=== PATIENT | male | born 1950 | race Caucasian/White ===

== ENCOUNTER 2016-12-01 19:00 | Inpatient (IN) | payer MEDICARE, BC ==
[~2016-12-01] VITALS: Ht 177.8 cm; Wt 108.9 kg
[2016-12-01] MEDS ORDERED: SODIUM CHLORIDE 0.9% 1,000 ML IV ONE ×2 (19:29→20:22)
[2016-12-01 19:44] LABS: BASOPHILS % 0.4 % (0.0-2.0); EOSINOPHILS % 1.2 % (0.0-5.0); HEMATOCRIT. 39.1 % (42.0-52.0); LYMPHOCYTES % 12.6 % (20.0-50.0); MEAN CORPUSCULAR HEMOGLOBIN 29.2 pg (28.0-32.0); MEAN CORPUSCULAR VOLUME 87.3 fL (80.0-94.0); MEAN PLATELET VOLUME 8.3 fl (7.4-10.4); NEUTROPHILS % 75.8 % (40.0-76.0); PLATELET 221 x1000/uL (130-400); RED BLOOD CELL COUNT 4.47 mill/uL (4.7-6.1); RED CELL DISTRIBUTION WIDTH 14.3 % (11.6-14.6)
[2016-12-01 19:59] LABS: INR 1.1
[2016-12-01 20:03] LABS: CARBON DIOXIDE 20 mEq/L (21-32); CHLORIDE 99 mEq/L (98-107); CREATINE KINASE 350 IU/L (39-308); CREATINE KINASE MB FRACTION 12.3 ng/mL (0.5-3.6); TOTAL IRON BINDING CAPACITY 238 ug/dL (250-450); TROPONIN I < 0.02 ng/mL (0.00-0.04)
[2016-12-01 20:37] LABS: FOLIC ACID (FOLATE) SERUM 10.8 ng/mL (>5.38)
[2016-12-01 22:39] LABS: CLARITY URINE CLEAR (CLEAR); COLOR URINE YELLOW (YELLOW); KETONES URINE NEGATIVE (NEGATIVE); LEUKOCYTE ESTERASE URINE TRACE (NEGATIVE); NITRITE URINE NEGATIVE (NEGATIVE); OCCULT BLOOD URINE TRACE (NEGATIVE); PROTEIN URINE TRACE (NEGATIVE); SPECIFIC GRAVITY URINE 1.016 (1.005-1.030); UROBILINOGEN URINE 0.2 E.U./dL (0.2-1.0)
[2016-12-01] MEDS ORDERED: ACETAMINOPHEN 325MG TABLET PO PRN (23:00)
[2016-12-01] MEDS ORDERED: DOCUSATE SODIUM 100MG CAPSULE PO PRN (23:00)
[2016-12-01] MEDS ORDERED: IPRATROPIUM/ALBUTEROL 0.5-3(2.5)MG/3ML NEB INH PRN (23:00)
[2016-12-01] MEDS ORDERED: ONDANSETRON HCL 4MG/2ML VIAL IV PRN (23:00)
[2016-12-01] MEDS ORDERED: CLONIDINE 0.1MG TABLET PO PRN (23:00)
[2016-12-01] MEDS ORDERED: MAGNESIUM/ALUMINUM HYDROXIDE/SIMETHICONE 30ML UDC PO PRN (23:00)
[2016-12-02 00:43] LABS: CARBON DIOXIDE 21 mEq/L (21-32); CHLORIDE 104 mEq/L (98-107)
[2016-12-02] MEDS ORDERED: TAMS-11 PO (02:29)
[2016-12-02] MEDS ORDERED: LISI10TA5 PO (02:29)
[2016-12-02] MEDS ORDERED: DEXTROSE 50% WATER 50ML SYRINGE IV PRN (02:30)
[2016-12-02] MEDS: SODIUM CHLORIDE 0.9% 1,000 ML IV SCH ×3 (03:02→21:10)
[2016-12-02] MEDS: BLOOD SUGAR DIAGNOSTIC STRIP TEST SCH ×4 (06:36→20:30)
[2016-12-02] MEDS: INSULIN LISPRO 100 UNITS/ML SUBCUT SCH ×4 (06:39→21:09)
[2016-12-02 06:46] LABS: CARBON DIOXIDE 20 mEq/L (21-32); CHLORIDE 107 mEq/L (98-107); CREATINE KINASE 291 IU/L (39-308); CREATINE KINASE MB FRACTION 9.4 ng/mL (0.5-3.6); HDL CHOLESTEROL 39 mg/dL (40-59); LDL CHOLESTEROL 101 mg/dL (5-100); PHOSPHORUS 5.4 mg/dL (2.5-4.9); TROPONIN I < 0.02 ng/mL (0.00-0.04)
[2016-12-02 06:48] LABS: BASOPHILS % 0.5 % (0.0-2.0); EOSINOPHILS % 1.2 % (0.0-5.0); HEMATOCRIT. 38.2 % (42.0-52.0); LYMPHOCYTES % 11.6 % (20.0-50.0); MEAN CORPUSCULAR HEMOGLOBIN 29.8 pg (28.0-32.0); MEAN CORPUSCULAR VOLUME 87.7 fL (80.0-94.0); MEAN PLATELET VOLUME 8.1 fl (7.4-10.4); MONOCYTES % 7.8 % (2.0-8.0); NEUTROPHILS % 78.9 % (40.0-76.0); PLATELET 188 x1000/uL (130-400); RED BLOOD CELL COUNT 4.35 mill/uL (4.7-6.1); RED CELL DISTRIBUTION WIDTH 14.3 % (11.6-14.6)
[2016-12-02] MEDS: MULTIVITAMINS,THER W-MINERALS TABLET PO SCH (11:39)
[2016-12-02] MEDS: CALCIUM ACETATE 667MG CAPSULE PO SCH ×2 (11:40→17:14)
[2016-12-02 13:13] LABS: CLARITY URINE CLEAR (CLEAR); COLOR URINE YELLOW (YELLOW); KETONES URINE NEGATIVE (NEGATIVE); LEUKOCYTE ESTERASE URINE NEGATIVE (NEGATIVE); NITRITE URINE NEGATIVE (NEGATIVE); OCCULT BLOOD URINE NEGATIVE (NEGATIVE); PROTEIN URINE NEGATIVE (NEGATIVE); SPECIFIC GRAVITY URINE 1.015 (1.005-1.030); UROBILINOGEN URINE 0.2 E.U./dL (0.2-1.0)
[2016-12-02] MEDS ORDERED: REGADENOSON 0.4 MG/5 ML IV NR (13:15)
[2016-12-02 16:04] LABS: CREATINE KINASE 190 IU/L (39-308); CREATINE KINASE MB FRACTION 6.8 ng/mL (0.5-3.6); TROPONIN I < 0.02 ng/mL (0.00-0.04)
[2016-12-02] MEDS: TAMSULOSIN HCL 0.4MG SR CAPSULE PO SCH (20:17)
[2016-12-03 05:54] LABS: CHLORIDE 112 mEq/L (98-107); PHOSPHORUS 3.5 mg/dL (2.5-4.9)
[2016-12-03 06:06] LABS: CARBON DIOXIDE 21 mEq/L (21-32); CREATINE KINASE 114 IU/L (39-308); CREATINE KINASE MB FRACTION 4.3 ng/mL (0.5-3.6); TROPONIN I 0.02 ng/mL (0.00-0.04)
[2016-12-03] MEDS: BLOOD SUGAR DIAGNOSTIC STRIP TEST SCH ×4 (06:12→20:52)
[2016-12-03] MEDS: SODIUM CHLORIDE 0.9% 1,000 ML IV SCH ×2 (06:23→18:34)
[2016-12-03 07:10] LABS: BASOPHILS % 0.9 % (0.0-2.0); EOSINOPHILS % 2.9 % (0.0-5.0); HEMATOCRIT. 37.2 % (42.0-52.0); HEMOGLOBIN. 12.7 g/dL (14.0-18.0); LYMPHOCYTES % 23.1 % (20.0-50.0); MEAN CORPUSCULAR HEMOGLOBIN 30.2 pg (28.0-32.0); MEAN CORPUSCULAR VOLUME 88.2 fL (80.0-94.0); MEAN PLATELET VOLUME 8.1 fl (7.4-10.4); MONOCYTES % 11.8 % (2.0-8.0); NEUTROPHILS % 61.3 % (40.0-76.0); PLATELET 185 x1000/uL (130-400); RED BLOOD CELL COUNT 4.22 mill/uL (4.7-6.1); RED CELL DISTRIBUTION WIDTH 14.1 % (11.6-14.6)
[2016-12-03] MEDS: INSULIN LISPRO 100 UNITS/ML SUBCUT SCH ×4 (07:25→20:49)
[2016-12-03] MEDS ORDERED: REGADENOSON 0.4 MG/5 ML IV ONE (07:59)
[2016-12-03] MEDS: MULTIVITAMINS,THER W-MINERALS TABLET PO SCH (10:16)
[2016-12-03] MEDS: CALCIUM ACETATE 667MG CAPSULE PO SCH ×3 (10:16→16:56)
[2016-12-03] MEDS: TAMSULOSIN HCL 0.4MG SR CAPSULE PO SCH (10:17)
[2016-12-03] MEDS ORDERED: TRAMADOL 50MG TABLET PO NR (10:45)
[2016-12-04] MEDS: SODIUM CHLORIDE 0.9% 1,000 ML IV SCH (04:38)
[2016-12-04 06:23] LABS: BASOPHILS % 0.9 % (0.0-2.0); EOSINOPHILS % 3.7 % (0.0-5.0); HEMOGLOBIN. 12.9 g/dL (14.0-18.0); LYMPHOCYTES % 22.9 % (20.0-50.0); MEAN CORPUSCULAR HEMOGLOBIN 29.6 pg (28.0-32.0); MEAN CORPUSCULAR VOLUME 87.4 fL (80.0-94.0); MEAN PLATELET VOLUME 8.1 fl (7.4-10.4); MONOCYTES % 11.1 % (2.0-8.0); NEUTROPHILS % 61.4 % (40.0-76.0); PLATELET 199 x1000/uL (130-400); RED BLOOD CELL COUNT 4.35 mill/uL (4.7-6.1); RED CELL DISTRIBUTION WIDTH 13.9 % (11.6-14.6)
[2016-12-04] MEDS: INSULIN LISPRO 100 UNITS/ML SUBCUT SCH (06:53)
[2016-12-04] MEDS: BLOOD SUGAR DIAGNOSTIC STRIP TEST SCH (06:53)
[2016-12-04 07:02] LABS: CARBON DIOXIDE 24 mEq/L (21-32); CHLORIDE 110 mEq/L (98-107)
[2016-12-04] MEDS: CALCIUM ACETATE 667MG CAPSULE PO SCH (07:28)
[2016-12-04] MEDS: MULTIVITAMINS,THER W-MINERALS TABLET PO SCH (08:04)
[2016-12-04] MEDS: TAMSULOSIN HCL 0.4MG SR CAPSULE PO SCH (08:04)
[2016-12-04] MEDS ORDERED: TRAMADOL 50MG TABLET PO PRN (09:00)
[2016-12-04 12:00] VITALS: BP 148/86
[2016-12-04] MEDS ORDERED: DOXAZOSIN MESYLATE 2MG TABLET PO SCH (21:00)
== END 2016-12-04 15:45 | disposition home or self-care (01) | DRG 73 ==
LOC: ER 19:00 → ENRESERV 21:05 → CANRESERV 21:05 → 8WST 21:22 → EDBEDREQSVC 21:26 → ENRESERV 21:55
PROVIDERS: ADMIT Internal Medicine; ATTEND Internal Medicine
DX: G90.8 Other disorders of autonomic nervous system (principal); N17.0 Acute kidney failure with tubular necrosis; I12.9 Hypertensive chronic kidney disease with stage 1 through stage 4 chronic kidney disease, or unspecified chronic kidney disease; I95.2 Hypotension due to drugs; N18.3 Chronic kidney disease, stage 3 (moderate); M10.9 Gout, unspecified; E29.1 Testicular hypofunction; E04.1 Nontoxic single thyroid nodule; E11.22 Type 2 diabetes mellitus with diabetic chronic kidney disease; E04.9 Nontoxic goiter, unspecified; M47.812 Spondylosis without myelopathy or radiculopathy, cervical region; I25.10 Atherosclerotic heart disease of native coronary artery without angina pectoris; E11.65 Type 2 diabetes mellitus with hyperglycemia; E66.9 Obesity, unspecified; E86.1 Hypovolemia; E78.2 Mixed hyperlipidemia; F43.21 Adjustment disorder with depressed mood; M47.816 Spondylosis without myelopathy or radiculopathy, lumbar region; N40.0 Benign prostatic hyperplasia without lower urinary tract symptoms; Z88.2 Allergy status to sulfonamides; Z86.010 Personal history of colon polyps; Z79.899 Other long term (current) drug therapy; Z82.49 Family history of ischemic heart disease and other diseases of the circulatory system; Z68.34 Body mass index [BMI] 34.0-34.9, adult; T46.5X5A Adverse effect of other antihypertensive drugs, initial encounter
CPT/HCPCS: 36415; 71010; 76770; 78452; 80048; 80053; 80061; 80076; 81001; 81003; 82550; 82553; 82570; 82607; 82746; 82962; 83036; 83540; 83550; 83735; 83880; 83935; 83970; 84100; 84156; 84300; 84443; 84484; 84550; 85025; 85044; 85379; 85610; 85730; 87086; 93005; 93017; 93306; 93880; 93923; 93970; 96360; 96361; 99285; A9500; C1893; J1815; J2785; J7030

== ENCOUNTER 2017-10-21 10:34 | Emergency (ER) | payer MEDICARE, BC ==
[~2017-10-21] VITALS: Ht 177.8 cm; Wt 96.0 kg
[~2017-10-21 10:34] MED LIST: TAMS-11 PO
[2017-10-21 12:30] VITALS: BP 155/90
== END 2017-10-21 12:30 | disposition home or self-care (01) ==
LOC: ER 11:19
DX: M48.061 Spinal stenosis, lumbar region without neurogenic claudication (principal); M51.27 Other intervertebral disc displacement, lumbosacral region; M51.36 Other intervertebral disc degeneration, lumbar region; M54.42 Lumbago with sciatica, left side; E11.22 Type 2 diabetes mellitus with diabetic chronic kidney disease; I12.9 Hypertensive chronic kidney disease with stage 1 through stage 4 chronic kidney disease, or unspecified chronic kidney disease; N18.9 Chronic kidney disease, unspecified; M10.9 Gout, unspecified; N40.1 Benign prostatic hyperplasia with lower urinary tract symptoms; Z88.2 Allergy status to sulfonamides
CPT/HCPCS: 72148; 99284

== ENCOUNTER 2019-11-05 13:02 | Inpatient (IN) | payer BC, MEDICARE ==
[~2019-11-05] VITALS: Ht 177.8 cm; Wt 129.3 kg
[2019-11-05] MEDS ORDERED: SODIUM CHLORIDE 0.9% 1,000 ML IV ONE (13:12)
[2019-11-05] MEDS ORDERED: ADENOSINE 3 MG/ML 2ML VIAL IV ONE ×2 (13:15→13:16)
[2019-11-05 13:22] LABS: EOSINOPHILS % 2.3 % (0.0-5.0); HEMATOCRIT. 42.1 % (42.0-52.0); HEMOGLOBIN. 14.5 g/dL (14.0-18.0); LYMPHOCYTES % 20.6 % (20.0-50.0); MEAN CORPUSCULAR HEMOGLOBIN 30.7 pg (28.0-32.0); MEAN CORPUSCULAR VOLUME 89.1 fL (80.0-94.0); MONOCYTES % 9.1 % (2.0-8.0); PLATELET 194 x1000/uL (130-400); RED BLOOD CELL COUNT 4.73 mill/uL (4.7-6.1); RED CELL DISTRIBUTION WIDTH 14.2 % (11.6-14.6)
[2019-11-05 13:27] LABS: CHLORIDE 106 mEq/L (98-107)
[2019-11-05] MEDS ORDERED: DILTIAZEM HCL 60MG TABLET PO ONE (13:30)
[2019-11-05 13:31] LABS: D-DIMER 0.28 mg/L FEU (<0.50); INR 0.9; PARTIAL THROMBOPLASTIN TIME 25.9 sec (23.4-31.0); PROTHROMBIN TIME 10.3 sec (9.6-11.0)
[2019-11-05] MEDS: DILTIAZEM HCL 60MG TABLET PO SCH ×2 (14:00→21:46)
[2019-11-05] MEDS ORDERED: ENOXAPARIN 120MG/0.8ML SYR SUBCUT ONE (14:15)
[2019-11-05] MEDS ORDERED: CLONIDINE 0.1MG TABLET PO PRN (14:30)
[2019-11-05] MEDS ORDERED: DOCUSATE SODIUM 100MG CAPSULE PO PRN (14:30)
[2019-11-05] MEDS ORDERED: ONDANSETRON HCL 4MG/2ML INJ IV PRN (14:30)
[2019-11-05] MEDS ORDERED: GUAIFENESIN 200MG/10ML SUGAR FREE UDC PO PRN (14:30)
[2019-11-05] MEDS ORDERED: MORPHINE SULFATE 2 MG/ML CPJ (NOT FOR IM USE) IV PRN (14:30)
[2019-11-05] MEDS ORDERED: HYDROCODONE/ACETAMINOPHEN 5/325MG TABLET PO PRN (14:30)
[2019-11-05] MEDS ORDERED: MAGNESIUM/ALUMINUM HYDROXIDE/SIMETHICONE 30ML UDC PO PRN (14:30)
[2019-11-05] MEDS ORDERED: ACETAMINOPHEN 325MG TABLET PO PRN (14:30)
[2019-11-05] MEDS: TAMSULOSIN HCL 0.4MG SR CAPSULE PO SCH (15:00)
[2019-11-05 15:09] VITALS: BP 145/85
[2019-11-05 16:00] VITALS: BP 135/75
[2019-11-05] MEDS ORDERED: DOXA8TAB81 MT (16:10)
[2019-11-05] MEDS ORDERED: DOXA8TAB81 PO (16:10)
[2019-11-05] MEDS ORDERED: [UNRECOGNIZED DRUG - OTHER] (16:10)
[2019-11-05] MEDS ORDERED: CHOL40002 PO (16:20)
[2019-11-05] MEDS ORDERED: LISI-186 PO (16:20)
[2019-11-05] MEDS ORDERED: VILA40TA PO (16:20)
[2019-11-05] MEDS ORDERED: TEST2.5G5 TP (16:20)
[2019-11-05] MEDS ORDERED: TOTAL RESTORE PO (16:20)
[2019-11-05] MEDS ORDERED: ASCO100T2 PO (16:20)
[2019-11-05] MEDS ORDERED: AMPH15CA PO (16:20)
[2019-11-05] MEDS ORDERED: PNEUMOCOCCAL 23-VAL P-SAC VAC 0.5 ML IM ONE (17:15)
[2019-11-05 18:00] VITALS: BP 127/68
[2019-11-05] MEDS ORDERED: DEXTROSE 50% WATER 50ML SYRINGE IV PRN (18:30)
[2019-11-05 18:43] LABS: CLARITY URINE CLEAR (CLEAR); COLOR URINE YELLOW (YELLOW); KETONES URINE NEGATIVE (NEGATIVE); LEUKOCYTE ESTERASE URINE NEGATIVE (NEGATIVE); NITRITE URINE NEGATIVE (NEGATIVE); OCCULT BLOOD URINE NEGATIVE (NEGATIVE); PROTEIN URINE NEGATIVE (NEGATIVE); SPECIFIC GRAVITY URINE 1.021 (1.005-1.030); UROBILINOGEN URINE 0.2 E.U./dL (0.2-1.0)
[2019-11-05] MEDS: BLOOD SUGAR DIAGNOSTIC STRIP TEST SCH ×2 (18:47→21:02)
[2019-11-05] MEDS: INSULIN LISPRO 100 UNITS/ML SUBCUT SCH ×2 (18:48→21:02)
[2019-11-05 20:00] VITALS: BP 129/57
[2019-11-05] MEDS ORDERED: BLOOD SUGAR DIAGNOSTIC STRIP TEST SCH (21:00)
[2019-11-05] MEDS: ENOXAPARIN 30MG/0.3ML SYR SUBCUT SCH (21:01)
[2019-11-05 22:00] VITALS: BP 122/68
[2019-11-06] VITALS (11 sets, daily range): BP systolic 118–149; BP diastolic 43–82
[2019-11-06] MEDS: BLOOD SUGAR DIAGNOSTIC STRIP TEST SCH ×4 (06:40→21:06)
[2019-11-06] MEDS: DILTIAZEM HCL 60MG TABLET PO SCH ×3 (06:40→22:12)
[2019-11-06 06:41] LABS: BASOPHILS % 0.8 % (0.0-2.0); EOSINOPHILS % 4.2 % (0.0-5.0); HEMATOCRIT. 39.3 % (42.0-52.0); HEMOGLOBIN. 13.6 g/dL (14.0-18.0); LYMPHOCYTES % 28.9 % (20.0-50.0); MEAN CORPUSCULAR VOLUME 89.8 fL (80.0-94.0); MEAN PLATELET VOLUME 8.1 fl (7.4-10.4); MONOCYTES % 9.2 % (2.0-8.0); NEUTROPHILS % 56.9 % (40.0-76.0); PLATELET 202 x1000/uL (130-400); RED BLOOD CELL COUNT 4.38 mill/uL (4.7-6.1); RED CELL DISTRIBUTION WIDTH 14.2 % (11.6-14.6)
[2019-11-06 06:46] LABS: T4 FREE 1.11 ng/dL (0.76-1.46)
[2019-11-06] MEDS: ASPIRIN 81MG EC TABLET PO SCH ×2 (08:28→08:37)
[2019-11-06] MEDS: TAMSULOSIN HCL 0.4MG SR CAPSULE PO SCH ×2 (08:28→08:37)
[2019-11-06] MEDS: ENOXAPARIN 30MG/0.3ML SYR SUBCUT SCH ×2 (08:28→21:07)
[2019-11-06] MEDS: INSULIN LISPRO 100 UNITS/ML SUBCUT SCH ×3 (08:29→18:19)
[2019-11-06] MEDS ORDERED: INSULIN LISPRO 100 UNITS/ML SUBCUT SCH (16:50)
[2019-11-06] MEDS: INSULIN LISPRO (LOW DOSE) 100 UNITS/ML SUBCUT SCH (18:18)
[2019-11-06] MEDS ORDERED: ATORVASTATIN CALCIUM 10MG TABLET PO SCH (21:00)
[2019-11-06] MEDS ORDERED: INSULIN GLARGINE UD 100 UNITS/ML SYR SUBCUT SCH (22:00)
[2019-11-07] VITALS (8 sets, daily range): BP systolic 128–156; BP diastolic 66–89
[2019-11-07] MEDS: SODIUM CHLORIDE 0.9% 1,000 ML IV SCH ×2 (05:09→08:55)
[2019-11-07] MEDS: DILTIAZEM HCL 60MG TABLET PO SCH ×2 (06:00→17:01)
[2019-11-07] MEDS: INSULIN LISPRO 100 UNITS/ML SUBCUT SCH ×2 (06:30→11:50)
[2019-11-07] MEDS: INSULIN LISPRO (LOW DOSE) 100 UNITS/ML SUBCUT SCH ×2 (06:30→13:38)
[2019-11-07] MEDS: BLOOD SUGAR DIAGNOSTIC STRIP TEST SCH ×2 (06:30→11:57)
[2019-11-07 06:48] LABS: BASOPHILS % 0.9 % (0.0-2.0); EOSINOPHILS % 3.5 % (0.0-5.0); HEMATOCRIT. 38.4 % (42.0-52.0); HEMOGLOBIN. 13.2 g/dL (14.0-18.0); LYMPHOCYTES % 25.3 % (20.0-50.0); MEAN CORPUSCULAR HEMOGLOBIN 30.6 pg (28.0-32.0); MEAN CORPUSCULAR VOLUME 89.1 fL (80.0-94.0); MEAN PLATELET VOLUME 8.3 fl (7.4-10.4); MONOCYTES % 9.9 % (2.0-8.0); NEUTROPHILS % 60.4 % (40.0-76.0); PLATELET 193 x1000/uL (130-400); RED BLOOD CELL COUNT 4.31 mill/uL (4.7-6.1)
[2019-11-07 06:58] LABS: CORTISOL 5.8 ucg/dL
[2019-11-07 07:00] LABS: HEPATITIS B SURFACE AB 7.3 mIU/mL
[2019-11-07 07:10] LABS: HEPATITIS B SURFACE ANTIGEN NEGATIVE
[2019-11-07 07:39] LABS: HEPATITIS A AB IGM NEGATIVE (NEGATIVE)
[2019-11-07 08:09] LABS: *CREATININE RANDOM URINE 86.3 mg/dL (Not Estab.); MICROALBUMIN RANDOM URINE 10.1 ug/mL (Not Estab.)
[2019-11-07] MEDS: ENOXAPARIN 30MG/0.3ML SYR SUBCUT SCH (08:55)
[2019-11-07] MEDS: ASPIRIN 81MG EC TABLET PO SCH ×2 (08:56→09:00)
[2019-11-07] MEDS: TAMSULOSIN HCL 0.4MG SR CAPSULE PO SCH ×3 (08:56→10:26)
[2019-11-07] MEDS ORDERED: SODIUM CHLORIDE 0.9% 1,000 ML IV SCH (09:00)
[2019-11-07] MEDS ORDERED: ASPIRIN 325MG EC TABLET PO SCH (10:15)
[2019-11-07 10:29] LABS: CLARITY URINE CLEAR (CLEAR); COLOR URINE YELLOW (YELLOW); KETONES URINE NEGATIVE (NEGATIVE); LEUKOCYTE ESTERASE URINE NEGATIVE (NEGATIVE); NITRITE URINE NEGATIVE (NEGATIVE); OCCULT BLOOD URINE NEGATIVE (NEGATIVE); PROTEIN URINE NEGATIVE (NEGATIVE); SPECIFIC GRAVITY URINE 1.019 (1.005-1.030); UROBILINOGEN URINE 0.2 E.U./dL (0.2-1.0)
[2019-11-07] MEDS ORDERED: MIDAZOLAM HCL 2 MG/2 ML VIAL ONE (10:51)
[2019-11-07] MEDS ORDERED: FENTANYL CITRATE/PF 50MCG/ML 2ML VIAL ONE (10:51)
[2019-11-07] MEDS ORDERED: IODIXANOL 320MG/ML 100 ML BOTTLE IV ONE (10:52)
[2019-11-07] MEDS ORDERED: LIDOCAINE HCL 1% 20ML VIAL (Pyxis) INJ ONE (10:57)
[2019-11-07] MEDS ORDERED: HEPARIN 1,000 UNITS in 0.9% NACL (2 UNITS/ML) 500ML PREMIX IV ONE (11:00)
[2019-11-07] MEDS ORDERED: NICARDIPINE 100MCG/ML 10ML VIAL (CATH LAB) IV ONE (11:00)
[2019-11-07] MEDS ORDERED: NITROGLYCERIN 50MCG/ML 10ML VIAL (CATH LAB) IV ONE (11:00)
[2019-11-07] MEDS ORDERED: ATROPINE SULFATE 1MG/10ML SYR IV PRN (11:30)
[2019-11-07] MEDS ORDERED: ONDANSETRON HCL 4MG/2ML INJ IV PRN (11:30)
[2019-11-07] MEDS ORDERED: ACETAMINOPHEN 325MG TABLET PO PRN (11:30)
[2019-11-07] MEDS ORDERED: AMMONIUM LACTATE 12% LOTION 240ML TOP SCH (12:00)
[2019-11-08 09:06] LABS: FOLICLE STIMULATING HORMONE 1.2 mIU/mL (1.5-12.4)
[2019-11-09 13:06] LABS: VITAMIN D 1-25 DIHYDROXY 36.5 pg/mL (19.9-79.3)
== END 2019-11-07 17:30 | disposition home or self-care (01) | DRG 287 ==
LOC: ER 13:17 → MICUSO 14:12 → EDBEDREQ 14:20 → EDBEDREQSVC 14:20 → EDBEDREQTM 14:20 → 3WST 15:00
PROVIDERS: ADMIT Hospitalist; ATTEND Hospitalist
PROC: 4A023N7 Measurement of Cardiac Sampling and Pressure, Left Heart, Percutaneous Approach (ICD-10-PCS; principal; 2019-11-07)
PROC: B2111ZZ Fluoroscopy of Multiple Coronary Arteries using Low Osmolar Contrast (ICD-10-PCS; 2019-11-07)
DX: I47.1 Supraventricular tachycardia (principal); Z68.41 Body mass index [BMI] 40.0-44.9, adult; I12.9 Hypertensive chronic kidney disease with stage 1 through stage 4 chronic kidney disease, or unspecified chronic kidney disease; I48.92 Unspecified atrial flutter; E11.22 Type 2 diabetes mellitus with diabetic chronic kidney disease; N18.3 Chronic kidney disease, stage 3 (moderate); E78.5 Hyperlipidemia, unspecified; R31.9 Hematuria, unspecified; N40.0 Benign prostatic hyperplasia without lower urinary tract symptoms; I49.3 Ventricular premature depolarization; E11.65 Type 2 diabetes mellitus with hyperglycemia; E66.01 Morbid (severe) obesity due to excess calories; K40.90 Unilateral inguinal hernia, without obstruction or gangrene, not specified as recurrent; K42.9 Umbilical hernia without obstruction or gangrene; K76.0 Fatty (change of) liver, not elsewhere classified; N28.1 Cyst of kidney, acquired; E04.1 Nontoxic single thyroid nodule; I25.10 Atherosclerotic heart disease of native coronary artery without angina pectoris; Z20.828 Contact with and (suspected) exposure to other viral communicable diseases; F98.8 Other specified behavioral and emotional disorders with onset usually occurring in childhood and adolescence; M10.9 Gout, unspecified; B35.1 Tinea unguium; E78.00 Pure hypercholesterolemia, unspecified; Z68.36 Body mass index [BMI] 36.0-36.9, adult; Z88.2 Allergy status to sulfonamides; Z86.010 Personal history of colon polyps
CPT/HCPCS: 36415; 71045; 80048; 80053; 80061; 81003; 82043; 82150; 82533; 82570; 82652; 82962; 83001; 83002; 83036; 83735; 83880; 83930; 83935; 84100; 84146; 84156; 84300; 84402; 84403; 84439; 84443; 84484; 84550; 85025; 85379; 86706; 86709; 86803; 87340; 90732; 93005; 93306; 93458; 93970; 96374; 99291; C1769; C1887; C1893; J0153; J1644; J1650; J1815; J2250; J3010; J3490; J7030; Q9967; U0003-CS

== ENCOUNTER → 2020-07-07 | Outpatient (CLI) | payer BC ==
[~2020-07-07] MED LIST changes: +AMPH15CA PO; +ASCO100T2 PO; +CHOL40002 PO; +DOXA8TAB81 MT; +DOXA8TAB81 PO; +LISI-186 PO; +TEST2.5G5 TP; +TOTAL RESTORE PO; +VILA40TA PO; +[UNRECOGNIZED DRUG - OTHER]
[2020-07-07 13:48] LABS: BASOPHILS % 1.3 % (0.0-2.0); EOSINOPHILS % 1.9 % (0.0-5.0); HEMATOCRIT. 41.9 % (42.0-52.0); HEMOGLOBIN. 13.8 g/dL (14.0-18.0); LYMPHOCYTES % 12.5 % (20.0-50.0); MEAN CORPUSCULAR HEMOGLOBIN 28.8 pg (28.0-32.0); MEAN CORPUSCULAR VOLUME 87.5 fL (80.0-94.0); MEAN PLATELET VOLUME 7.9 fl (7.4-10.4); MONOCYTES % 6.9 % (2.0-8.0); NEUTROPHILS % 77.4 % (40.0-76.0); PLATELET 198 x1000/uL (130-400); RED BLOOD CELL COUNT 4.78 mill/uL (4.7-6.1); RED CELL DISTRIBUTION WIDTH 14.4 % (11.6-14.6)
[2020-07-07 13:51] LABS: CHLORIDE 108 mEq/L (98-107)
[2020-07-07 13:55] LABS: AMYLASE 143 IU/L (25-115); GAMMA GLUTAMYL TRANSPEPTIDASE 25 IU/L (11-50)
[2020-07-07 13:57] LABS: PHOSPHORUS 2.8 mg/dL (2.5-4.9)
[2020-07-07 13:58] LABS: LDL CHOLESTEROL 135 mg/dL (5-100)
[2020-07-07 13:59] LABS: HDL CHOLESTEROL 61 mg/dL (40-59)
[2020-07-07 14:02] LABS: T4 FREE 1.15 ng/dL (0.76-1.46)
[2020-07-07 14:17] LABS: CARCINO EMBRYONIC ANTIGEN 1.9 ng/ml; CORTISOL 24.8 ucg/dL
[2020-07-07 14:18] LABS: HEPATITIS B SURFACE AB 7.1 mIU/mL
[2020-07-07 14:28] LABS: HEPATITIS B SURFACE ANTIGEN NEGATIVE
[2020-07-08 09:06] LABS: % FREE PSA 25.9 % (.); FOLICLE STIMULATING HORMONE 4.5 mIU/mL (1.5-12.4); HEPATITIS A ANTIBODY TOTAL Negative (Negative); LUTEINIZING HORMONE 3.2 mIU/mL (1.7-8.6); PROLACTIN 5.3 ng/mL (4.0-15.2); PROSTATE SPECIFIC AG TOTAL 2.7 ng/mL (0.0-4.0); VITAMIN D 25-OH 42.7 ng/mL (30.0-100.0)
[2020-07-09 13:06] LABS: INSULIN-LIKE GROWTH FACTOR 1 147 ng/mL (59-230)
== END | disposition home or self-care (01) ==
LOC: LAB 12:10
PROVIDERS: ATTEND Internal Medicine Endocrinology, Diabetes & Metabolism
DX: K76.0 Fatty (change of) liver, not elsewhere classified (principal); R16.0 Hepatomegaly, not elsewhere classified; N28.1 Cyst of kidney, acquired; E11.9 Type 2 diabetes mellitus without complications; E29.1 Testicular hypofunction
CPT/HCPCS: 36415; 76536; 76700; 80053; 80061; 82150; 82306; 82378; 82533; 82977; 83001; 83002; 83036; 83615; 83735; 84100; 84146; 84153; 84154; 84305; 84402; 84403; 84439; 84443; 84550; 85025; 86706; 86708; 86803; 87340; 87426

== ENCOUNTER → 2020-09-11 | Outpatient (CLI) | payer BC | END | disposition home or self-care (01) | LOC: LAB 13:48 | PROVIDERS: ATTEND Internal Medicine Endocrinology, Diabetes & Metabolism | DX: E11.9 Type 2 diabetes mellitus without complications (principal); K85.90 Acute pancreatitis without necrosis or infection, unspecified | CPT/HCPCS: 36415; 80048; 80061; 82150; 83036 ==

== ENCOUNTER → 2022-01-20 | Outpatient (CLI) | payer BC | END | disposition home or self-care (01) | LOC: LAB 16:53 | PROVIDERS: ATTEND Internal Medicine Critical Care Medicine | DX: Z20.822 Contact with and (suspected) exposure to COVID-19 (principal) | CPT/HCPCS: C9803; U0003; U0005 ==

== ENCOUNTER → 2022-09-01 | Outpatient (CLI) | payer BC, MEDICARE ==
[2022-09-01 17:24] LABS: BASOPHILS % 0.6 % (0.0-2.0); EOSINOPHILS % 2.1 % (0.0-5.0); HEMATOCRIT. 40.7 % (42.0-52.0); HEMOGLOBIN. 13.7 g/dL (14.0-18.0); LYMPHOCYTES % 14.7 % (20.0-50.0); MEAN CORPUSCULAR VOLUME 89.4 fL (80.0-94.0); MEAN PLATELET VOLUME 7.1 fl (7.4-10.4); MONOCYTES % 9.3 % (2.0-8.0); NEUTROPHILS % 73.3 % (40.0-76.0); PLATELET 221 x1000/uL (130-400); RED BLOOD CELL COUNT 4.55 mill/uL (4.7-6.1); RED CELL DISTRIBUTION WIDTH 13.8 % (11.6-14.6)
[2022-09-01 17:47] LABS: CHLORIDE 105 mEq/L (98-107)
[2022-09-02 17:12] LABS: AMYLASE 102 IU/L (25-115)
== END | disposition home or self-care (01) ==
LOC: LAB 16:45
PROVIDERS: ATTEND Internal Medicine Endocrinology, Diabetes & Metabolism
DX: I10 Essential (primary) hypertension (principal); N40.0 Benign prostatic hyperplasia without lower urinary tract symptoms; E11.9 Type 2 diabetes mellitus without complications; M10.9 Gout, unspecified; E04.1 Nontoxic single thyroid nodule; R74.8 Abnormal levels of other serum enzymes
CPT/HCPCS: 36415; 80053; 80061; 83036; 84153; 84550; 85025; 86800; G0103

== ENCOUNTER → 2022-11-12 | Outpatient (CLI) | payer BC, MEDICARE | END | disposition home or self-care (01) | LOC: LAB 15:50 | PROVIDERS: ATTEND Internal Medicine Endocrinology, Diabetes & Metabolism | DX: I10 Essential (primary) hypertension (principal); E11.9 Type 2 diabetes mellitus without complications; R74.8 Abnormal levels of other serum enzymes; M10.9 Gout, unspecified | CPT/HCPCS: 36415; 80048; 82150; 83036; 84550 ==

== ENCOUNTER → 2022-11-18 | Outpatient (CLI) | payer BC, MEDICARE | END | disposition home or self-care (01) | LOC: US 08:07 | PROVIDERS: ATTEND Internal Medicine Endocrinology, Diabetes & Metabolism | DX: K76.0 Fatty (change of) liver, not elsewhere classified (principal); N28.1 Cyst of kidney, acquired; R16.1 Splenomegaly, not elsewhere classified; N28.89 Other specified disorders of kidney and ureter; E04.1 Nontoxic single thyroid nodule | CPT/HCPCS: 76536; 76700 ==

== ENCOUNTER → 2023-01-03 | Outpatient (CLI) | payer BC ==
[2023-01-03 16:03] LABS: BASOPHILS % 0.6 % (0.0-2.0); EOSINOPHILS % 2.9 % (0.0-5.0); HEMATOCRIT. 39.5 % (42.0-52.0); HEMOGLOBIN. 13.3 g/dL (14.0-18.0); LYMPHOCYTES % 20.6 % (20.0-50.0); MEAN CORPUSCULAR VOLUME 88.9 fL (80.0-94.0); MEAN PLATELET VOLUME 7.4 fl (7.4-10.4); MONOCYTES % 8.6 % (2.0-8.0); NEUTROPHILS % 67.3 % (40.0-76.0); PLATELET 274 x1000/uL (130-400); RED BLOOD CELL COUNT 4.44 mill/uL (4.7-6.1); RED CELL DISTRIBUTION WIDTH 14.1 % (11.6-14.6)
[2023-01-03 16:07] LABS: CHLORIDE 105 mEq/L (98-107)
[2023-01-03 16:08] LABS: PARTIAL THROMBOPLASTIN TIME 27.8 sec (23.4-31.0); PROTHROMBIN TIME 10.5 sec (9.6-11.0)
[2023-01-03 16:24] LABS: PROSTRATE SPECIFIC AG TOTAL 4.77 ng/mL (0.0-4.0)
[2023-01-03 16:25] LABS: CARCINO EMBRYONIC ANTIGEN 1.3 ng/ml
[2023-01-03 16:26] LABS: AMYLASE 96 IU/L (25-115); T4 FREE 1.02 ng/dL (0.76-1.46)
== END | disposition home or self-care (01) ==
LOC: LAB 14:58
PROVIDERS: ATTEND Internal Medicine Endocrinology, Diabetes & Metabolism
DX: E04.1 Nontoxic single thyroid nodule (principal); K85.90 Acute pancreatitis without necrosis or infection, unspecified; E11.9 Type 2 diabetes mellitus without complications; K76.0 Fatty (change of) liver, not elsewhere classified; M10.9 Gout, unspecified; D64.9 Anemia, unspecified
CPT/HCPCS: 36415; 80053; 82150; 82308; 82378; 83036; 84153; 84436; 84439; 84443; 84481; 84550; 85025; 86800; G0103

== ENCOUNTER → 2023-02-25 | Outpatient (CLI) | payer BC ==
[2023-02-25 17:41] LABS: CALCIUM 9.5 mg/dL (8.5-10.1); CREATININE 1.3 mg/dL (0.6-1.3); URIC ACID 6.9 mg/dL (2.6-7.2)
== END | disposition home or self-care (01) ==
LOC: LAB 16:39
PROVIDERS: ATTEND Internal Medicine Endocrinology, Diabetes & Metabolism
DX: I10 Essential (primary) hypertension (principal); E11.65 Type 2 diabetes mellitus with hyperglycemia; M10.9 Gout, unspecified; R74.8 Abnormal levels of other serum enzymes
CPT/HCPCS: 36415; 80048; 82150; 83036; 84550

== ENCOUNTER → 2023-10-18 | Outpatient (CLI) | payer BC, MEDICARE ==
[2023-10-18 14:31] LABS: HEMOGLOBIN. 12.4 g/dL (14.0-18.0); MEAN CORPUSCULAR HEMOGLOBIN 29.9 pg (28.0-32.0); MEAN CORPUSCULAR HGB CONC 34.3 g/dL (31.0-37.0); MEAN CORPUSCULAR VOLUME 87.2 fL (80.0-94.0); MEAN PLATELET VOLUME 6.8 fl (7.4-10.4); PLATELET 440 x1000/uL (130-400); RED BLOOD CELL COUNT 4.13 mill/uL (4.7-6.1); WHITE BLOOD COUNT 13.3 x1000/uL (4.5-11.0)
[2023-10-18 14:34] LABS: DIFFERENTIAL COMMENT 1
[2023-10-18 14:36] LABS: CLARITY URINE CLEAR (CLEAR); COLOR URINE YELLOW (YELLOW); GLUCOSE URINE NEGATIVE (NEGATIVE); KETONES URINE NEGATIVE (NEGATIVE); LEUKOCYTE ESTERASE URINE NEGATIVE (NEGATIVE); NITRITE URINE NEGATIVE (NEGATIVE); OCCULT BLOOD URINE NEGATIVE (NEGATIVE); PH URINE 5.5 (4.5-8.0); PROTEIN URINE 1+ (NEGATIVE); SPECIFIC GRAVITY URINE 1.017 (1.005-1.030); UROBILINOGEN URINE 0.2 E.U./dL (0.2-1.0)
[2023-10-18 14:50] LABS: CHLORIDE 110 mEq/L (98-107); POTASSIUM 4.1 mEq/L (3.5-5.1); SODIUM 137 mEq/L (136-145)
[2023-10-18 14:50] LABS: BACTERIA URINE FEW; RBC URINE NONE SEEN /hpf (0-2); SQUAMOUS EPITHELIAL CELL URINE NONE SEEN /lpf (RARE/1+); WBC URINE 0-2 /hpf (0-2); YEAST URINE NONE SEEN
[2023-10-18 14:51] LABS: CALCIUM 10.1 mg/dL (8.7-10.4); CARBON DIOXIDE 22 mEq/L (21-32)
[2023-10-18 14:55] LABS: URIC ACID 6.4 mg/dL (3.7-9.2)
[2023-10-18 14:56] LABS: CREATININE 1.3 mg/dL (0.6-1.3); GLUCOSE 167 mg/dL (70-105); TRIGLYCERIDE 61 mg/dL (0-150); UREA NITROGEN BLOOD 21 mg/dL (9-23)
[2023-10-18 14:57] LABS: ALANINE AMINOTRANSFERASE 40 IU/L (10-49); AMYLASE 108 IU/L (30-118); LDL CHOLESTEROL 100 mg/dL (5-100)
[2023-10-18 14:58] LABS: ALBUMIN 3.7 g/dL (3.2-4.8); ASPARTATE AMINOTRANSFERASE 17 IU/L (<34); BILIRUBIN TOTAL 0.4 mg/dL (0.1-1.0); CHOLESTEROL 138 mg/dL (<200); GAMMA GLUTAMYL TRANSPEPTIDASE 25 IU/L (<73); HDL CHOLESTEROL 33 mg/dL (>55); PROTEIN TOTAL 7.3 g/dL (6.0-8.3)
[2023-10-18 15:00] LABS: T4 FREE 1.44 ng/dL (0.89-1.76); THYROID STIMULATING HORMONE 0.15 uIU/mL (0.55-4.78)
[2023-10-18 18:30] LABS: PLATELET ESTIMATE INCREASED
[2023-10-20 08:08] LABS: % FREE PSA 21.3 % (.); PROSTATE SPECIFIC AG TOTAL 5.4 ng/mL (0.0-4.0); PSA FREE 1.15 ng/mL; VITAMIN D 25-OH 46.4 ng/mL (30.0-100.0)
== END | disposition home or self-care (01) ==
LOC: LAB 13:47
PROVIDERS: ATTEND Internal Medicine Endocrinology, Diabetes & Metabolism
DX: I10 Essential (primary) hypertension (principal); E11.9 Type 2 diabetes mellitus without complications; E78.5 Hyperlipidemia, unspecified; D64.9 Anemia, unspecified; M10.9 Gout, unspecified; N40.0 Benign prostatic hyperplasia without lower urinary tract symptoms; Z79.899 Other long term (current) drug therapy
CPT/HCPCS: 36415; 80053; 80061; 81003; 82150; 82306; 82977; 83036; 84153; 84154; 84403; 84439; 84443; 84550; 85025

== ENCOUNTER 2024-01-03 06:52 | Inpatient (IN) | payer MEDICARE, BC ==
[~2024-01-03] VITALS: Ht 175.3 cm; Wt 113.4 kg
[2024-01-03] MEDS: ONDANSETRON HCL 4MG/2ML INJ IV STA (07:09)
[2024-01-03] MEDS: MORPHINE SULFATE 4 MG/ML INJ (FOR IV/IM USE) IV ONE (07:30)
[2024-01-03 07:41] LABS: BASOPHILS % 0.5 % (0.0-2.0); EOSINOPHILS % 1.5 % (0.0-5.0); HEMATOCRIT. 41.4 % (42.0-52.0); HEMOGLOBIN. 13.8 g/dL (14.0-18.0); LYMPHOCYTES % 15.3 % (20.0-50.0); MEAN CORPUSCULAR HEMOGLOBIN 29.9 pg (28.0-32.0); MEAN CORPUSCULAR HGB CONC 33.3 g/dL (31.0-37.0); MEAN CORPUSCULAR VOLUME 89.6 fL (80.0-94.0); MEAN PLATELET VOLUME 7.7 fl (7.4-10.4); MONOCYTES % 7.6 % (2.0-8.0); NEUTROPHILS % 75.1 % (40.0-76.0); PLATELET 320 x1000/uL (130-400); RED BLOOD CELL COUNT 4.62 mill/uL (4.7-6.1); RED CELL DISTRIBUTION WIDTH 14.5 % (11.6-14.6); WHITE BLOOD COUNT 11.7 x1000/uL (4.5-11.0)
[2024-01-03] MEDS: SODIUM CHLORIDE 0.9% 1,000 ML IV ONE ×2 (07:49→10:48)
[2024-01-03 07:51] LABS: CHLORIDE 107 mEq/L (98-107); POTASSIUM 3.6 mEq/L (3.5-5.1); SODIUM 138 mEq/L (136-145)
[2024-01-03 07:52] LABS: CALCIUM 9.9 mg/dL (8.7-10.4); CARBON DIOXIDE 19 mEq/L (21-32)
[2024-01-03 07:54] LABS: PROTHROMBIN TIME 11.2 sec (9.6-11.0)
[2024-01-03 07:57] LABS: GLUCOSE 150 mg/dL (70-105); UREA NITROGEN BLOOD 27 mg/dL (9-23)
[2024-01-03 07:58] LABS: LACTIC ACID 3.4 mmol/L (0.4-2.0)
[2024-01-03 07:59] LABS: ALANINE AMINOTRANSFERASE 12 IU/L (10-49); ALBUMIN 4.5 g/dL (3.2-4.8); ASPARTATE AMINOTRANSFERASE 12 IU/L (<34); BILIRUBIN DIRECT 0.4 mg/dL (<=3.0); BILIRUBIN TOTAL 1.3 mg/dL (0.1-1.0); PROTEIN TOTAL 7.5 g/dL (6.0-8.3)
[2024-01-03 08:15] LABS: CREATININE 1.8 mg/dL (0.6-1.3)
[2024-01-03] MEDS: CEFTRIAXONE 2GM/50ML 50 ML IV ONE (11:05)
[2024-01-03] MEDS ORDERED: CLONIDINE 0.1MG TABLET PO PRN (11:30)
[2024-01-03] MEDS ORDERED: MAGNESIUM/ALUMINUM HYDROXIDE/SIMETHICONE 30ML UDC PO PRN (11:30)
[2024-01-03] MEDS ORDERED: ACETAMINOPHEN 325MG TABLET PO PRN (11:30)
[2024-01-03] MEDS ORDERED: IPRATROPIUM/ALBUTEROL 0.5-3(2.5)MG/3ML NEB HHN PRN (11:30)
[2024-01-03] MEDS ORDERED: ACETAMINOPHEN 650MG/20.3ML UDC GT PRN (11:30)
[2024-01-03] MEDS ORDERED: DEXTROSE 50% WATER 50ML SYRINGE IV PRN (11:30)
[2024-01-03] MEDS ORDERED: ONDANSETRON HCL 4MG/2ML INJ IV PRN (11:30)
[2024-01-03] MEDS ORDERED: GUAIFENESIN 200MG/10ML SUGAR FREE UDC PO PRN (11:30)
[2024-01-03] MEDS ORDERED: DOCUSATE SODIUM 100MG CAPSULE PO PRN (11:30)
[2024-01-03] MEDS: SODIUM CHLORIDE 0.45% 1,000 ML IV SCH (11:30)
[2024-01-03] MEDS: METRONIDAZOLE 500 MG PREMIX 100 ML IV ONE (11:33)
[2024-01-03 12:00] VITALS: BP 123/54; PULSE 76; RESP 18; TEMP 97.7
[2024-01-03 12:54] VITALS: BP 123/54; PULSE 76; RESP 18; TEMP 97.7
[2024-01-03] MEDS: KCL 10MEQ/50ML PREMIX 50 ML IV NR (13:00)
[2024-01-03] MEDS: BLOOD SUGAR DIAGNOSTIC STRIP TEST SCH (13:00)
[2024-01-03] MEDS: PIPERACILLIN/TAZO 3.375G/50ML 50 ML IV SCH (13:00)
[2024-01-03] MEDS: INSULIN LISPRO 100 UNITS/ML SUBCUT SCH (13:20)
[2024-01-03 14:31] LABS: IRON 33 ug/dL (65-175)
[2024-01-03 14:32] LABS: PHOSPHORUS 3.4 mg/dL (2.5-4.9); TRIGLYCERIDE 109 mg/dL (0-150)
[2024-01-03 14:33] LABS: LDL CHOLESTEROL 86 mg/dL (5-100)
[2024-01-03 14:34] LABS: AMYLASE 67 IU/L (30-118); CHOLESTEROL 146 mg/dL (<200); GAMMA GLUTAMYL TRANSPEPTIDASE 22 IU/L (<73); HDL CHOLESTEROL 41 mg/dL (>55); TROPONIN I HIGH SENSITIVITY 20 ng/L (3.0-53)
[2024-01-03 14:35] LABS: CREATINE KINASE 44 IU/L (46-171); TOTAL IRON BINDING CAPACITY 232 ug/dl (250-425)
[2024-01-03 14:36] LABS: FERRITIN 368 ng/mL (22-322); HEPATITIS B SURFACE AB < 3.1 mIU/mL (<10)
[2024-01-03 14:37] LABS: FOLIC ACID (FOLATE) SERUM > 20.00 ng/mL (>5.38); VITAMIN B12 SERUM 426 pg/mL (211-911)
[2024-01-03 15:09] LABS: HEPATITIS C AB NON REACTIVE (Neg) (Negative)
[2024-01-03 16:00] VITALS: BP 119/59; PULSE 80; RESP 18; TEMP 97.5
[2024-01-03] MEDS: DILTIAZEM HCL 90MG TABLET PO SCH (17:58)
[2024-01-03] MEDS: ENOXAPARIN 40MG/0.4ML SYR SUBCUT SCH (18:00)
[2024-01-03] MEDS ORDERED: ENOXAPARIN 30MG/0.3ML SYR SUBCUT SCH (18:00)
[2024-01-03 20:00] VITALS: BP 138/64; PULSE 77; RESP 19; TEMP 97.5
[2024-01-03] MEDS: FAMOTIDINE 20MG/2ML VIAL IV SCH (21:00)
[2024-01-03] MEDS: HYDRALAZINE HCL 50MG TABLET PO SCH (21:42)
[2024-01-03] MEDS: DILTIAZEM HCL 90MG TABLET PO NR (22:46)
[2024-01-03] MEDS ORDERED: TERBINAFINE HCL 1% CREAM 15GM TOP SCH (23:15)
[2024-01-03 23:57] LABS: CREATINE KINASE 40 IU/L (46-171); TROPONIN I HIGH SENSITIVITY 14 ng/L (3.0-53)
[2024-01-04] VITALS (8 sets, daily range): BP systolic 126–170; BP diastolic 50–72; PULSE 79–86; RESP 19–20; TEMP 97.3–98.6
[2024-01-04] MEDS: DILTIAZEM HCL 90MG TABLET PO SCH
[2024-01-04] MEDS: KETOCONAZOLE 2% CREAM 15GM TOP SCH (00:56)
[2024-01-04] MEDS: AMMONIUM LACTATE 12% LOTION 240ML TOP SCH (00:56)
[2024-01-04] MEDS: CIPROFLOXACIN 0.3% OPHTH SOLN 2.5ML LEFTEYE SCH (00:56)
[2024-01-04] MEDS ORDERED: DILTIAZEM HCL 90MG TABLET PO SCH (06:00)
[2024-01-04 07:27] LABS: HEMATOCRIT. 38.2 % (42.0-52.0); HEMOGLOBIN. 12.6 g/dL (14.0-18.0); MEAN CORPUSCULAR HEMOGLOBIN 29.5 pg (28.0-32.0); MEAN CORPUSCULAR HGB CONC 33.1 g/dL (31.0-37.0); MEAN CORPUSCULAR VOLUME 89.3 fL (80.0-94.0); MEAN PLATELET VOLUME 7.6 fl (7.4-10.4); PLATELET 259 x1000/uL (130-400); RED BLOOD CELL COUNT 4.27 mill/uL (4.7-6.1); RED CELL DISTRIBUTION WIDTH 14.3 % (11.6-14.6); WHITE BLOOD COUNT 8.6 x1000/uL (4.5-11.0)
[2024-01-04 07:37] LABS: CHLORIDE 109 mEq/L (98-107); POTASSIUM 4.1 mEq/L (3.5-5.1); SODIUM 140 mEq/L (136-145)
[2024-01-04 07:38] LABS: CALCIUM 9.9 mg/dL (8.7-10.4); CARBON DIOXIDE 21 mEq/L (21-32)
[2024-01-04 07:42] LABS: URIC ACID 8.6 mg/dL (3.7-9.2)
[2024-01-04 07:43] LABS: CREATININE 1.6 mg/dL (0.6-1.3); GLUCOSE 88 mg/dL (70-105); PROTEIN TOTAL 6.9 g/dL (6.0-8.3); TRIGLYCERIDE 126 mg/dL (0-150); UREA NITROGEN BLOOD 23 mg/dL (9-23)
[2024-01-04 07:44] LABS: ALBUMIN 4.1 g/dL (3.2-4.8); LDL CHOLESTEROL 94 mg/dL (5-100)
[2024-01-04 07:45] LABS: ALANINE AMINOTRANSFERASE 11 IU/L (10-49); ASPARTATE AMINOTRANSFERASE 11 IU/L (<34); BILIRUBIN DIRECT 0.3 mg/dL (<=3.0); CHOLESTEROL 151 mg/dL (<200); HDL CHOLESTEROL 37 mg/dL (>55); PHOSPHORUS 3.7 mg/dL (2.5-4.9); T4 FREE 1.44 ng/dL (0.89-1.76); THYROID STIMULATING HORMONE 0.19 uIU/mL (0.55-4.78)
[2024-01-04 08:37] LABS: PLATELET ESTIMATE NORMAL
[2024-01-04] MEDS: DILTIAZEM HCL 60MG TABLET PO SCH (14:44)
[2024-01-04 16:57] LABS: CLARITY URINE CLEAR (CLEAR); COLOR URINE YELLOW (YELLOW); GLUCOSE URINE NEGATIVE (NEGATIVE); KETONES URINE TRACE (NEGATIVE); LEUKOCYTE ESTERASE URINE NEGATIVE (NEGATIVE); NITRITE URINE NEGATIVE (NEGATIVE); OCCULT BLOOD URINE NEGATIVE (NEGATIVE); PROTEIN URINE 1+ (NEGATIVE); UROBILINOGEN URINE 0.2 E.U./dL (0.2-1.0)
[2024-01-04 17:09] LABS: BACTERIA URINE TRACE; RBC URINE 0-2 /hpf (0-2); SQUAMOUS EPITHELIAL CELL URINE 1+ /lpf (RARE/1+); WBC URINE 0-2 /hpf (0-2)
[2024-01-05] VITALS: BP 143/68; PULSE 84; RESP 20; TEMP 98.9
[2024-01-05] MEDS: SODIUM CHLORIDE 0.45% 1,000 ML IV SCH (01:17)
[2024-01-05 04:00] VITALS: BP 148/69; PULSE 80; RESP 20; TEMP 98.5
[2024-01-05 06:11] LABS: BASOPHILS % 0.9 % (0.0-2.0); EOSINOPHILS % 3.3 % (0.0-5.0); HEMATOCRIT. 36.8 % (42.0-52.0); HEMOGLOBIN. 12.3 g/dL (14.0-18.0); LYMPHOCYTES % 23.7 % (20.0-50.0); MEAN CORPUSCULAR HEMOGLOBIN 29.8 pg (28.0-32.0); MEAN CORPUSCULAR HGB CONC 33.3 g/dL (31.0-37.0); MEAN CORPUSCULAR VOLUME 89.6 fL (80.0-94.0); MEAN PLATELET VOLUME 7.5 fl (7.4-10.4); NEUTROPHILS % 61.1 % (40.0-76.0); PLATELET 249 x1000/uL (130-400); RED BLOOD CELL COUNT 4.11 mill/uL (4.7-6.1); RED CELL DISTRIBUTION WIDTH 14.3 % (11.6-14.6); WHITE BLOOD COUNT 6.1 x1000/uL (4.5-11.0)
[2024-01-05 06:30] LABS: CHLORIDE 111 mEq/L (98-107); POTASSIUM 3.7 mEq/L (3.5-5.1); SODIUM 140 mEq/L (136-145)
[2024-01-05 06:32] LABS: CARBON DIOXIDE 23 mEq/L (21-32)
[2024-01-05 06:33] LABS: CALCIUM 9.4 mg/dL (8.7-10.4)
[2024-01-05 06:37] LABS: CREATININE 1.4 mg/dL (0.6-1.3); GLUCOSE 101 mg/dL (70-105)
[2024-01-05 06:38] LABS: UREA NITROGEN BLOOD 18 mg/dL (9-23)
[2024-01-05 06:39] LABS: ALANINE AMINOTRANSFERASE 10 IU/L (10-49); ASPARTATE AMINOTRANSFERASE 10 IU/L (<34)
[2024-01-05 06:40] LABS: BILIRUBIN DIRECT 0.3 mg/dL (<=3.0); BILIRUBIN TOTAL 0.8 mg/dL (0.1-1.0); PROTEIN TOTAL 6.6 g/dL (6.0-8.3)
[2024-01-05 08:00] VITALS: BP 141/53; PULSE 90; RESP 18; TEMP 96.4
[2024-01-05 08:11] LABS: CARCINOEMBRYONIC AG - SEND OUT 1.3 ng/mL (0.0-4.7); PROSTATE SPECIFIC AG TOTAL 4.6 ng/mL (0.0-4.0)
[2024-01-05] MEDS: ASPIRIN 325MG EC TABLET PO SCH (08:48)
[2024-01-05] MEDS: DIATR MEGLU/DIATRIZOATE SOLN 120ML ONE (12:28)
[2024-01-05 16:00] VITALS: BP_SYST 140; BP_SYST 142; BP_DIAS 57; BP_DIAS 93; PULSE 80; PULSE 86; RESP 18; RESP 19; TEMP 97.5; TEMP 97.7
[2024-01-05] MEDS: DILTIAZEM HCL 90MG TABLET PO SCH (17:34)
[2024-01-05 20:00] VITALS: BP 132/69; PULSE 88; RESP 18; TEMP 96.6
[2024-01-05 22:09] LABS: CALCIUM URINE (RAW) 5.1 mg/dL
[2024-01-05 22:13] LABS: URIC ACID URINE (RAW) 28 mg/dL
[2024-01-05 22:14] LABS: CREATININE URINE (RAW) 98.4 mg/dl
[2024-01-05 22:25] LABS: CALCIUM URINE 24 HR 80.3 mg/24hr (<300)
[2024-01-05 22:32] LABS: TOTAL VOLUME 24 HR 1575 mL; URIC ACID URINE 24 HR 441 mg/24hr (250-750)
[2024-01-06] VITALS: BP 142/62; PULSE 101; RESP 18; TEMP 97.7
[2024-01-06 04:00] VITALS: BP 124/58; PULSE 87; RESP 18; TEMP 96.3
[2024-01-06] MEDS ORDERED: LEVO750T68 PO (09:42)
[2024-01-06] MEDS ORDERED: METR375C2 PO (09:42)
[2024-01-06 09:57] VITALS: BP 146/67; PULSE 96; TEMP 97.9; O2SAT 99
== END 2024-01-06 10:30 | disposition home or self-care (01) | DRG 871 ==
LOC: ER 07:56 → EDBEDREQ 10:35 → EDBEDREQTM 10:35 → 6EST 10:40 → EDBEDREQ 10:42 → 6EST 12:25
PROVIDERS: ADMIT Internal Medicine Endocrinology, Diabetes & Metabolism; ATTEND Internal Medicine Endocrinology, Diabetes & Metabolism
DX: A41.9 Sepsis, unspecified organism (principal); N17.0 Acute kidney failure with tubular necrosis; K57.32 Diverticulitis of large intestine without perforation or abscess without bleeding; E23.0 Hypopituitarism; K56.7 Ileus, unspecified; E04.1 Nontoxic single thyroid nodule; E11.22 Type 2 diabetes mellitus with diabetic chronic kidney disease; E66.01 Morbid (severe) obesity due to excess calories; G47.33 Obstructive sleep apnea (adult) (pediatric); I12.9 Hypertensive chronic kidney disease with stage 1 through stage 4 chronic kidney disease, or unspecified chronic kidney disease; E78.5 Hyperlipidemia, unspecified; K42.9 Umbilical hernia without obstruction or gangrene; N18.30 Chronic kidney disease, stage 3 unspecified; N20.0 Calculus of kidney; I25.10 Atherosclerotic heart disease of native coronary artery without angina pectoris; M50.30 Other cervical disc degeneration, unspecified cervical region; M51.36 Other intervertebral disc degeneration, lumbar region; R65.20 Severe sepsis without septic shock; E04.2 Nontoxic multinodular goiter; N28.1 Cyst of kidney, acquired; N40.0 Benign prostatic hyperplasia without lower urinary tract symptoms; Z68.37 Body mass index [BMI] 37.0-37.9, adult; B35.1 Tinea unguium; E86.0 Dehydration; D64.9 Anemia, unspecified; Z79.899 Other long term (current) drug therapy; Z88.2 Allergy status to sulfonamides; Z87.442 Personal history of urinary calculi; Z83.719 Family history of colon polyps, unspecified
CPT/HCPCS: 36415; 71045; 74018; 74176; 76536; 80048; 80053; 80061; 80076; 81003; 82150; 82340; 82378; 82533; 82550; 82575; 82607; 82728; 82746; 82962; 82977; 83036; 83520; 83540; 83550; 83605; 83735; 83880; 84100; 84145; 84153; 84156; 84439; 84443; 84481; 84484; 84550; 84560; 85025; 85044; 86705; 86706; 93005; 93306; 93970; 99291; J0696; J1650; J1815; J2543; J3480; J3490; J7030; Q9963

== ENCOUNTER → 2024-01-26 | Outpatient (CLI) | payer MEDICARE, BC ==
[~2024-01-26] MED LIST changes: +LEVO750T68 PO; +METR375C2 PO
[2024-01-26 12:09] LABS: POTASSIUM 4.2 mEq/L (3.5-5.1)
[2024-01-26 12:10] LABS: CALCIUM 10.2 mg/dL (8.7-10.4)
[2024-01-26 12:14] LABS: BASOPHILS % 1.1 % (0.0-2.0); EOSINOPHILS % 2.5 % (0.0-5.0); HEMATOCRIT. 36.7 % (42.0-52.0); HEMOGLOBIN. 12.5 g/dL (14.0-18.0); MEAN CORPUSCULAR HEMOGLOBIN 30.1 pg (28.0-32.0); MEAN CORPUSCULAR HGB CONC 33.9 g/dL (31.0-37.0); MEAN CORPUSCULAR VOLUME 88.9 fL (80.0-94.0); MEAN PLATELET VOLUME 7.1 fl (7.4-10.4); MONOCYTES % 9.3 % (2.0-8.0); NEUTROPHILS % 70.1 % (40.0-76.0); PLATELET 297 x1000/uL (130-400); RED BLOOD CELL COUNT 4.13 mill/uL (4.7-6.1); RED CELL DISTRIBUTION WIDTH 14.6 % (11.6-14.6); URIC ACID 7.9 mg/dL (3.7-9.2)
[2024-01-26 12:15] LABS: CREATININE 1.4 mg/dL (0.6-1.3)
[2024-01-26 12:19] LABS: T4 FREE 1.16 ng/dL (0.89-1.76); THYROID STIMULATING HORMONE 0.3 uIU/mL (0.55-4.78)
[2024-01-28 07:13] LABS: % FREE PSA 23.3 % (.); PROSTATE SPECIFIC AG TOTAL 4.8 ng/mL (0.0-4.0); PSA FREE 1.12 ng/mL; VITAMIN D 25-OH 44.1 ng/mL (30.0-100.0)
[2024-01-28 08:09] LABS: MICROALBUMIN RANDOM URINE 64.9 ug/mL (Not Estab.)
== END | disposition home or self-care (01) ==
LOC: LAB 11:22
PROVIDERS: ATTEND Internal Medicine Endocrinology, Diabetes & Metabolism
DX: E11.9 Type 2 diabetes mellitus without complications (principal); E78.5 Hyperlipidemia, unspecified; N40.0 Benign prostatic hyperplasia without lower urinary tract symptoms; E55.9 Vitamin D deficiency, unspecified; E04.1 Nontoxic single thyroid nodule
CPT/HCPCS: 36415; 80048; 80061; 82043; 82306; 82570; 83036; 84153; 84154; 84439; 84443; 84550; 85025

== ENCOUNTER → 2024-05-08 | Outpatient (CLI) | payer MEDICARE, BC ==
[2024-05-08 13:34] LABS: EOSINOPHILS % 1.9 % (0.0-5.0); HEMATOCRIT. 39.4 % (42.0-52.0); HEMOGLOBIN. 12.9 g/dL (14.0-18.0); LYMPHOCYTES % 12.9 % (20.0-50.0); MEAN CORPUSCULAR HEMOGLOBIN 29.9 pg (28.0-32.0); MEAN CORPUSCULAR HGB CONC 32.6 g/dL (31.0-37.0); MEAN CORPUSCULAR VOLUME 91.6 fL (80.0-94.0); MEAN PLATELET VOLUME 7.2 fl (7.4-10.4); MONOCYTES % 10.2 % (2.0-8.0); PLATELET 225 x1000/uL (130-400); RED CELL DISTRIBUTION WIDTH 14.5 % (11.6-14.6); WHITE BLOOD COUNT 9.7 x1000/uL (4.5-11.0)
[2024-05-08 13:50] LABS: CHLORIDE 108 mEq/L (98-107); POTASSIUM 4.7 mEq/L (3.5-5.1); SODIUM 141 mEq/L (136-145)
[2024-05-08 13:51] LABS: CALCIUM 9.9 mg/dL (8.7-10.4); CARBON DIOXIDE 28 mEq/L (21-32)
[2024-05-08 13:56] LABS: CREATININE 1.5 mg/dL (0.6-1.3); GLUCOSE 137 mg/dL (70-105); TRIGLYCERIDE 74 mg/dL (0-150); UREA NITROGEN BLOOD 32 mg/dL (9-23)
[2024-05-08 13:57] LABS: LDL CHOLESTEROL 131 mg/dL (5-100)
[2024-05-08 13:58] LABS: ALANINE AMINOTRANSFERASE 18 IU/L (10-49); ALBUMIN 4.1 g/dL (3.2-4.8); ASPARTATE AMINOTRANSFERASE 13 IU/L (<34); CHOLESTEROL 197 mg/dL (<200); HDL CHOLESTEROL 61 mg/dL (>55); PHOSPHORUS 3.7 mg/dL (2.5-4.9)
[2024-05-08 13:59] LABS: BILIRUBIN TOTAL 0.6 mg/dL (0.1-1.0); PROTEIN TOTAL 6.8 g/dL (6.0-8.3)
[2024-05-08 14:00] LABS: T4 FREE 1.49 ng/dL (0.89-1.76)
[2024-05-08 14:01] LABS: THYROID STIMULATING HORMONE 0.52 uIU/mL (0.55-4.78)
[2024-05-10 09:07] LABS: IMMUNOGLOBULIN A 164 mg/dL (61-437); IMMUNOGLOBULIN G 1084 mg/dL (603-1613); IMMUNOGLOBULIN M 81 mg/dL (15-143); VITAMIN D 25-OH 36.7 ng/mL (30.0-100.0)
[2024-05-11 19:06] LABS: INSULIN-LIKE GROWTH FACTOR 1 135 ng/mL (53-222)
== END | disposition home or self-care (01) ==
LOC: LAB 12:51
PROVIDERS: ATTEND Internal Medicine Endocrinology, Diabetes & Metabolism
DX: I10 Essential (primary) hypertension (principal); E11.9 Type 2 diabetes mellitus without complications; E78.5 Hyperlipidemia, unspecified; E55.9 Vitamin D deficiency, unspecified; E03.9 Hypothyroidism, unspecified; Z79.899 Other long term (current) drug therapy
CPT/HCPCS: 36415; 80053; 80061; 82306; 82570; 82784; 83036; 83695; 83735; 83880; 84100; 84156; 84305; 84432; 84439; 84443; 84481; 85025; 86334

== ENCOUNTER → 2024-05-15 | Outpatient (CLI) | payer MEDICARE, BC ==
[2024-05-15 14:13] LABS: CHLORIDE 106 mEq/L (98-107); POTASSIUM 4.2 mEq/L (3.5-5.1); SODIUM 140 mEq/L (136-145)
[2024-05-15 14:14] LABS: CALCIUM 9.9 mg/dL (8.7-10.4); CARBON DIOXIDE 25 mEq/L (21-32)
[2024-05-15 14:19] LABS: CREATININE 1.4 mg/dL (0.6-1.3); GLUCOSE 138 mg/dL (70-105); UREA NITROGEN BLOOD 29 mg/dL (9-23)
[2024-05-15 14:38] LABS: CLARITY URINE CLEAR (CLEAR); COLOR URINE YELLOW (YELLOW); GLUCOSE URINE NEGATIVE (NEGATIVE); KETONES URINE NEGATIVE (NEGATIVE); LEUKOCYTE ESTERASE URINE TRACE (NEGATIVE); NITRITE URINE NEGATIVE (NEGATIVE); OCCULT BLOOD URINE NEGATIVE (NEGATIVE); PH URINE 5.5 (4.5-8.0); PROTEIN URINE 1+ (NEGATIVE); UROBILINOGEN URINE 0.2 E.U./dL (0.2-1.0)
[2024-05-15 14:51] LABS: SQUAMOUS EPITHELIAL CELL URINE NONE SEEN /lpf (RARE/1+)
[2024-05-15 14:52] LABS: BACTERIA URINE FEW; YEAST URINE NONE SEEN
[2024-05-17 08:08] LABS: % FREE PSA 26.3 % (.); PROSTATE SPECIFIC AG TOTAL 8.2 ng/mL (0.0-4.0); PSA FREE 2.16 ng/mL
[2024-05-17 13:06] LABS: *CREATININE RANDOM URINE 137.6 mg/dL (Not Estab.); MICROALBUMIN RANDOM URINE 95.9 ug/mL (Not Estab.)
== END | disposition home or self-care (01) ==
LOC: LAB 13:10
PROVIDERS: ATTEND Internal Medicine Endocrinology, Diabetes & Metabolism
DX: I12.9 Hypertensive chronic kidney disease with stage 1 through stage 4 chronic kidney disease, or unspecified chronic kidney disease (principal); N18.9 Chronic kidney disease, unspecified; E11.22 Type 2 diabetes mellitus with diabetic chronic kidney disease; R97.20 Elevated prostate specific antigen [PSA]; N40.1 Benign prostatic hyperplasia with lower urinary tract symptoms; E03.9 Hypothyroidism, unspecified; E55.9 Vitamin D deficiency, unspecified; E78.5 Hyperlipidemia, unspecified
CPT/HCPCS: 36415; 80048; 81003; 82043; 82570; 83735; 83880; 84153; 84154

== ENCOUNTER → 2024-06-27 | Outpatient (CLI) | payer MEDICARE, BC ==
[2024-06-27 18:05] LABS: POTASSIUM 3.8 mEq/L (3.5-5.1)
[2024-06-27 18:11] LABS: CREATININE 1.6 mg/dL (0.6-1.3)
[2024-06-29 08:09] LABS: KAPPA LT CHAINS FREE SERUM 47.2 mg/L (3.3-19.4); KAPPA/LAMBDA RATIO 1.04 (0.26-1.65); LAMBDA LT CHAINS FREE SERUM 45.6 mg/L (5.7-26.3); PROSTATE SPECIFIC AG TOTAL 7.1 ng/mL (0.0-4.0); PSA FREE 1.63 ng/mL
== END | disposition home or self-care (01) ==
LOC: LAB 16:46
PROVIDERS: ATTEND Internal Medicine Endocrinology, Diabetes & Metabolism
DX: R97.20 Elevated prostate specific antigen [PSA] (principal); N18.4 Chronic kidney disease, stage 4 (severe); Z79.899 Other long term (current) drug therapy
CPT/HCPCS: 36415; 80048; 83880; 83883; 84153; 84154

== ENCOUNTER → 2024-10-11 | Outpatient (CLI) | payer MEDICARE, BC ==
[~2024-10-11] MED LIST changes: -TAMS-11 PO; +TAMS-54 PO
== END | disposition home or self-care (01) ==
LOC: RAD 10:08
PROVIDERS: ATTEND Specialist
DX: Z01.818 Encounter for other preprocedural examination (principal); M47.814 Spondylosis without myelopathy or radiculopathy, thoracic region
CPT/HCPCS: 71046

== ENCOUNTER → 2025-01-14 | Outpatient (CLI) | payer MEDICARE, BC ==
[2025-01-14 17:05] LABS: CREATININE 1.4 mg/dL (0.6-1.3); UREA NITROGEN BLOOD 28.0 mg/dL (9-23)
== END | disposition home or self-care (01) ==
LOC: LAB 16:17
PROVIDERS: ATTEND Internal Medicine Endocrinology, Diabetes & Metabolism
DX: I12.9 Hypertensive chronic kidney disease with stage 1 through stage 4 chronic kidney disease, or unspecified chronic kidney disease (principal); E11.22 Type 2 diabetes mellitus with diabetic chronic kidney disease; N18.4 Chronic kidney disease, stage 4 (severe); E04.9 Nontoxic goiter, unspecified
CPT/HCPCS: 36415; 80048; 83036; 83880; 84550

== ENCOUNTER → 2025-04-30 | Outpatient (CLI) | payer MEDICARE, BC ==
[2025-04-30 09:27] LABS: BASOPHILS % 0.9 % (0.0-2.0); EOSINOPHILS % 2.5 % (0.0-5.0); HEMATOCRIT. 37.4 % (42.0-52.0); HEMOGLOBIN. 12.5 g/dL (14.0-18.0); LYMPHOCYTES % 18.5 % (20.0-50.0); MEAN PLATELET VOLUME 7.4 fl (7.4-10.4); MONOCYTES % 10.4 % (2.0-8.0); NEUTROPHILS % 67.7 % (40.0-76.0); PLATELET 258 x1000/uL (130-400); RED BLOOD CELL COUNT 4.25 mill/uL (4.7-6.1); RED CELL DISTRIBUTION WIDTH 14.6 % (11.6-14.6)
[2025-04-30 09:40] LABS: LDL CHOLESTEROL 108.0 mg/dL (5-100); TRIGLYCERIDE 94.0 mg/dL (0-150); UREA NITROGEN BLOOD 56.0 mg/dL (9-23)
[2025-04-30 10:08] LABS: CREATININE 2.3 mg/dL (0.6-1.3)
[2025-05-01 09:07] LABS: PROSTATE SPECIFIC AG TOTAL 6.4 ng/mL (0.0-4.0)
[2025-05-03 07:11] LABS: TESTOSTERONE FREE 3.7 pg/mL (6.6-18.1)
== END | disposition home or self-care (01) ==
LOC: LAB 08:35
PROVIDERS: ATTEND Internal Medicine Endocrinology, Diabetes & Metabolism
DX: N40.0 Benign prostatic hyperplasia without lower urinary tract symptoms (principal); E11.22 Type 2 diabetes mellitus with diabetic chronic kidney disease; N18.9 Chronic kidney disease, unspecified; E79.0 Hyperuricemia without signs of inflammatory arthritis and tophaceous disease; D64.9 Anemia, unspecified
CPT/HCPCS: 36415; 80048; 80061; 83036; 84153; 84402; 84403; 84550; 85025

== ENCOUNTER → 2025-05-21 | Outpatient (CLI) | payer MEDICARE, BC | END | disposition home or self-care (01) | LOC: US 07:58 | PROVIDERS: ATTEND Internal Medicine Endocrinology, Diabetes & Metabolism | DX: E04.1 Nontoxic single thyroid nodule (principal) | CPT/HCPCS: 76536 ==